=== PATIENT | male | born 1935 | race Caucasian/White ===

== ENCOUNTER 2022-02-20 07:51 | Inpatient (IN) | payer OTHER ==
[~2022-02-20] VITALS: Ht 172.7 cm; Wt 67.6 kg
[2022-02-20 07:54] VITALS: BP 130/80
[2022-02-20] MEDS ORDERED: NACL 0.9% 500 ML IV ONE (08:00)
--- NOTE | 2022-02-20 08:19 | NUR ---
Pt [facility] CT [facility]
[2022-02-20 08:35] LABS: UREA NITROGEN, BLOOD 24 mg/dL (7-18)
[2022-02-20 09:03] LABS: ACETAMINOPHEN < 0.5 ug/ml (10-30); ALBUMIN 4.2 g/dL (3.4-5.0); ANION GAP 13.2 (8-16); ASPARTATE AMINOTRANSFERASE 24 U/L (15-37); CARBON DIOXIDE 27.8 mmol/L (21-32); CHLORIDE 107 mmol/L (98-107); CREATININE 1.1 mg/dL (0.6-1.3); GLUCOSE 132 mg/dL (74-106); SALICYLATE < 2.8 mg/dL (2.8-20.0); SODIUM SERUM 145 mmol/L (136-145); TOTAL BILIRUBIN 1.2 mg/dL (0.0-1.0)
[2022-02-20 09:15] LABS: BASOPHILS # (AUTO) 0.1 K/uL (0.00-0.22); BASOPHILS % (AUTO) 0.7 % (0.0-2.0); EOSINOPHILS % (AUTO) 0.3 % (0.0-4.0); HEMATOCRIT 41.6 % (36-52); HEMOGLOBIN 14.1 g/dL (12.0-18.0); LYMPHOCYTES # (AUTO) 1.3 K/uL (2.0-11.5); LYMPHOCYTES % (AUTO) 15.2 % (20.5-51.1); MEAN CORPUSCULAR HEMOGLOBIN 30 pg (27-31); MEAN CORPUSCULAR HGB CONC 34 g/dL (33-37); MEAN CORPUSCULAR VOLUME 88.7 fL (80-94); MONOCYTES # (AUTO) 0.5 K/uL (0.8-1.0); MONOCYTES % (AUTO) 6.4 % (1.7-9.3); NEUTROPHILS # (AUTO) 6.6 K/uL (1.8-7.7); NEUTROPHILS % (AUTO) 77.4 % (42.2-75.2); PLATELET COUNT (AUTO) 181 K/uL (140-450); RED BLOOD CELL COUNT(AUTO) 4.69 MIL/uL (4.20-6.10); RED CELL DISTRIBUTION WIDTH 13.8 % (11.6-13.7); WHITE BLOOD COUNT (AUTO) 8.5 K/uL (4.8-10.8)
[2022-02-20] MEDS ORDERED: ZIPRASIDONE MESYLATE 20 MG/ML VIAL IM ONE ×2 (10:05→10:06)
[2022-02-20] MEDS ORDERED: WATER STERILE 10 ML MC ONE (10:06)
[2022-02-20] MEDS ORDERED: HALOPERIDOL IM 5 MG/ML VIAL IM ONE (10:55)
[2022-02-20] MEDS ORDERED: LORazepam 2 MG/ML VIAL IM ONE (10:55)
[2022-02-20] MEDS ORDERED: diphenhydrAMINE 50 MG/ML VIAL IM ONE (10:55)
[2022-02-20 12:01] LABS: APPEARANCE,URINE CLEAR (CLEAR); BILIRUBIN,URINE NEGATIVE (NEGATIVE); BLOOD, URINE TRACE-I (NEGATIVE); COLOR,URINE YELLOW (YELLOW); LEUKOCYTE ESTERASE ,URINE NEGATIVE (NEGATIVE); NITRITE, URINE NEGATIVE (NEGATIVE); PH,URINE 7.5 (5.0-9.0); UGLUCOSE NEGATIVE (NEGATIVE)
[2022-02-20 12:10] LABS: BARBITURATE, URINE NEGATIVE ng/ml (NEG <=200); BENZODIAZEPINE, URINE NEGATIVE ng/mL (NEG <=200); CANNABINOID, URINE NEGATIVE ng/mL (NEG <=50); COCAINE, URINE NEGATIVE ng/mL (NEG <=300); OPIATE, URINE NEGATIVE ng/mL (NEG <=2000); PHENCYCLIDINE SCREEN,URINE NEGATIVE ng/mL (NEG <=25)
[2022-02-20 12:24] LABS: OTHER CASTS, URINE None Seen /LPF (None Seen); WBC,URINE 0-5 /HPF (0-5)
[2022-02-20] MEDS ORDERED: KCL 20 MEQ/WATER INJ PREMIX 200 ML IV ONE (12:55)
[2022-02-20] MEDS ORDERED: ONDANSETRON 4 MG/2 ML VIAL IVP PRN (14:30)
[2022-02-20] MEDS ORDERED: ACETAMINOPHEN 325 MG TAB PO PRN (14:30)
[2022-02-20] MEDS ORDERED: POTASSIUM CHLORIDE 10 MEQ TABER PO PRN (14:30)
[2022-02-20] MEDS ORDERED: MAG SULF 2000 MG/WATER PREMIX 50 ML IV PRN (14:30)
[2022-02-20] MEDS ORDERED: ZOLPIDEM 10 MG TAB PO PRN (14:30)
[2022-02-20] MEDS ORDERED: MORPHINE SULFATE 2 MG/ML SYR IVP PRN (14:30)
[2022-02-20] MEDS ORDERED: DOCUSATE SODIUM 100 MG GELCAP PO PRN (14:30)
--- NOTE | 2022-02-20 19:41 | NUR ---
report given to marcelo claudio . will transport pt to floor
--- NOTE | 2022-02-20 20:00 | NUR ---
Patient will be admitted to care of . Admited to [facility]. Will go to [id number]. Belongings list completed. Report to LEX MATHIAS.
--- NOTE | 2022-02-20 20:39 | NUR ---
pt came from ER by fausto, He is drowsy, awake with the pain. he would mumble and arouse. Attempt to get his history but pt is unable to provide since the baseline.
[2022-02-20 21:00] VITALS: BP 160/106
[2022-02-20] MEDS: NACL 0.9% 1,000 ML IV SCH (22:19)
[2022-02-21] VITALS: BP 158/71
--- NOTE | 2022-02-21 | NUR ---
pt getting his Iv fluid. he is resting, looked very tired.
[2022-02-21 06:11] LABS: BASOPHILS % (AUTO) 0.4 % (0.0-2.0); EOSINOPHILS # (AUTO) 0.1 K/uL (0-0.4); EOSINOPHILS % (AUTO) 0.8 % (0.0-4.0); HEMATOCRIT 40.3 % (36-52); HEMOGLOBIN 13.7 g/dL (12.0-18.0); LYMPHOCYTES # (AUTO) 1.5 K/uL (2.0-11.5); LYMPHOCYTES % (AUTO) 15.5 % (20.5-51.1); MEAN CORPUSCULAR HEMOGLOBIN 31 pg (27-31); MEAN CORPUSCULAR HGB CONC 34 g/dL (33-37); MEAN CORPUSCULAR VOLUME 89.5 fL (80-94); MONOCYTES # (AUTO) 0.7 K/uL (0.8-1.0); MONOCYTES % (AUTO) 6.8 % (1.7-9.3); NEUTROPHILS # (AUTO) 7.3 K/uL (1.8-7.7); NEUTROPHILS % (AUTO) 76.5 % (42.2-75.2); PLATELET COUNT (AUTO) 149 K/uL (140-450); RED CELL DISTRIBUTION WIDTH 14.2 % (11.6-13.7); WHITE BLOOD COUNT (AUTO) 9.5 K/uL (4.8-10.8)
[2022-02-21 06:29] LABS: ANION GAP 8.5 (8-16); CARBON DIOXIDE 28.6 mmol/L (21-32); CHLORIDE 109 mmol/L (98-107); CREATININE 0.7 mg/dL (0.6-1.3); GLUCOSE 65 mg/dL (74-106); POTASSIUM 3.1 mmol/L (3.5-5.1); SODIUM SERUM 143 mmol/L (136-145); UREA NITROGEN, BLOOD 11 mg/dL (7-18)
[2022-02-21 08:00] VITALS: BP 162/83
--- NOTE | 2022-02-21 08:19 | NUR ---
NURSE WALKED IN ROOM FOUND PATIENT ATTEMPTING TO USE URINAL OVER THE SINK. NURSE HELPED PT GET IN BED. NOTED IV TUBING RIPPED OFF AND LEAKING ON FLOOR. CLEANED FLOOR. NURSE ASKED PT TO LOOK AT IV ON ARM. PT STATES "WHAT I NEED RIGHT NOW IS SOME QUIET TO REST" NURSE INSTRUCTED PT TO USE CALL LIGHT IF HE NEEDS ANYTHING, PT STATES "IM NOT USELESS I CAN DO THINGS MYSELF, IM HERE AT THE HOSPITAL BECAUSE EVERYONE GOT TOGETHER AND STARTED SAYING THINGS THAT AREN'T TRUE." CALL LIGHT PLACED NEXT TO PT, AND PT VERBALIZED UNDERSTANDING USE OF CALL LIGHT.
--- NOTE | 2022-02-21 11:52 | NUR ---
NURSE WALKED IN PT TALKING ON PHONE. STATES HE IS TALKING TO HIS GRANDMOTHER. PT THEN ASKS NURSE WHATS MY NAME, NURSE ANSWERS "FELIX BOLTON" PT STATES NOT THAT ONE. NURSE EXPLAINED TO PT HE NEEDS TO BE CONNECTED TO HIS FLUIDS AND HIS MAGNESIUM IS LOW. PT IS REFUSING IV FLUIDS. EXPLAINED RISKS AND BENEFITS. PT CONTINUE TO REFUSE.
--- NOTE | 2022-02-21 12:09 | NUR ---
PT GIVEN INSULIN PER SLIDING SCALE AND DUE ORAL MEDS. PT IN BED. PT STATES HE IS TIRED AND NEEDS TO GET SOME REST. INFORMED PT DIALYSIS NURSE SAID HE WILL BE RECEIVING DIALYSIS FROM 12-3PM. PT VERBALIZED UNDERSTANDING. Addendum: 02/21/22 at 1539 by Mallory Barragan LVN WRONG PATIENT.
[2022-02-21] MEDS: NACL 0.9% 1,000 ML IV SCH (12:10)
--- NOTE | 2022-02-21 13:00 | NUR ---
PT IN HALLWAY SITTING ON CHAIR WRITING NOTES.
--- NOTE | 2022-02-21 15:39 | NUR ---
PT IN BED ASLEEP. VISIBLE CHEST RISE AND FALL. RESPIRATIONS EVEN AND UNLABORED. NO DISTRESS NOTED. CALL LIGHT WITHIN REACH. ALL SAFETY PRECAUTIONS IN PLACE.
--- NOTE | 2022-02-21 17:50 | NUR ---
PT WALKING IN HALLWAY. NURSE BROUGHT PT TO HIS ROOM. PUT TV ON. PT LAYING DOWN WATCHING TV. ORIENTED TO CALL LIGHT, WITHIN EASY REACH. BED IN LOWEST POSITION.
--- NOTE | 2022-02-21 19:27 | NUR ---
ENDORSED PT TO ACOUSTICAL INSTALLER NURSE FOR CONTINUITY OF CARE. PT IN STABLE CONDITION.
[2022-02-21 20:00] VITALS: BP 161/101
--- NOTE | 2022-02-21 20:11 | NUR ---
pt is resting in bed. no sign of acute distress. pt is following command. cooperative and calm
--- NOTE | 2022-02-21 20:32 | NUR ---
I helped to feed the pt. he only ate 3 scopes of his meal and half of his jesse.
--- NOTE | 2022-02-22 00:30 | NUR ---
pt was found standing and walking out of bed. I reminded him that he is in the hospital. he also pulled his Iv. I asked to to go to his bed, he understood.
--- NOTE | 2022-02-22 01:30 | NUR ---
put the IV in on the right 22 gauge
[2022-02-22] MEDS: LORazepam 2 MG/ML VIAL IVP PRN ×2 (01:43→20:16)
--- NOTE | 2022-02-22 03:00 | NUR ---
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 i explained again that he is in the hospital.
[2022-02-22 04:00] VITALS: BP 159/95
[2022-02-22] MEDS: NACL 0.9% 1,000 ML IV SCH ×2 (04:50→21:46)
--- NOTE | 2022-02-22 05:00 | NUR ---
pt wanted to go to the bedroom for number 1 but he already voided on the bed. he doesn't know that he peed on bed. cleaned the patient. Pt wanted to go home to take care for him self, he feels that he is a prisoner here.
[2022-02-22 06:12] LABS: BASOPHILS % (AUTO) 0.6 % (0.0-2.0); EOSINOPHILS % (AUTO) 0.7 % (0.0-4.0); HEMATOCRIT 42.3 % (36-52); HEMOGLOBIN 14.4 g/dL (12.0-18.0); LYMPHOCYTES # (AUTO) 1.3 K/uL (2.0-11.5); LYMPHOCYTES % (AUTO) 17.3 % (20.5-51.1); MEAN CORPUSCULAR HEMOGLOBIN 30 pg (27-31); MEAN CORPUSCULAR HGB CONC 34 g/dL (33-37); MEAN CORPUSCULAR VOLUME 89.2 fL (80-94); MONOCYTES # (AUTO) 0.6 K/uL (0.8-1.0); MONOCYTES % (AUTO) 7.6 % (1.7-9.3); NEUTROPHILS # (AUTO) 5.4 K/uL (1.8-7.7); NEUTROPHILS % (AUTO) 73.8 % (42.2-75.2); PLATELET COUNT (AUTO) 148 K/uL (140-450); RED BLOOD CELL COUNT(AUTO) 4.74 MIL/uL (4.20-6.10); RED CELL DISTRIBUTION WIDTH 14.2 % (11.6-13.7); WHITE BLOOD COUNT (AUTO) 7.3 K/uL (4.8-10.8)
--- NOTE | 2022-02-22 06:15 | NUR ---
pt is resting on the bed now after few attempt to walk by himself.
[2022-02-22 06:31] LABS: ANION GAP 11.8 (8-16); CARBON DIOXIDE 27.8 mmol/L (21-32); CHLORIDE 106 mmol/L (98-107); CREATININE 0.9 mg/dL (0.6-1.3); GLUCOSE 89 mg/dL (74-106); POTASSIUM 3.6 mmol/L (3.5-5.1); SODIUM SERUM 142 mmol/L (136-145); UREA NITROGEN, BLOOD 17 mg/dL (7-18)
[2022-02-22 08:00] VITALS: BP 180/79
--- NOTE | 2022-02-22 09:19 | NUR ---
PATIENT HAS BEEN SCREENED AND CATEGORIZED MODERATE NUTRITION RISK. PATIENT WILL BE SEEN WITHIN 3-5 DAYS OF ADMISSION. 02/20/22-02/25/[address]
--- NOTE | 2022-02-22 09:50 | NUR ---
INFORMED DR GUPTA WHILE HE WAS MAKING ROUNDS. ABOUT PT BP BEING ELEVATED AND HOW HE HAS NO HOME MEDS ON FILE OR ANY PRN IN HIS EMAR. AWAITING NEW ORDERS.
[2022-02-22] MEDS ORDERED: METOPROLOL 25 MG TAB PO STA (10:30)
--- NOTE | 2022-02-22 11:36 | NUR ---
PER DR GUPTA GAVE PT METROPROLOL FIRST DOSE NOW. PT IN BED ASLEEP. WAKEN TO TAKE MEDS. TOOK MED AND LAID BACK DOWN TO SLEEP. CALL LIGHT WITHIN REACH. PT NEAR NURSES STATION.
--- NOTE | 2022-02-22 12:54 | NUR ---
PT GOT OUT OF BED WALKS INTO HALLWAY DRAGGING A BLANKET OVER HIS BACK. PT STATES HE HAS TO GO TAKE CARE OF HIS GRANDMOTHER. LUNCH ARRIVED. NURSE BROUGHT PT TO ROOM. ORIENTED HIM TO HIS SURROUNDINGS. PT EATING LUNCH.
--- NOTE | 2022-02-22 14:16 | NUR ---
PT REFUSING IV FLUIDS. WALKING FROM HALLWAY TO ROOM. SAYS HE CANNOT STAY HERE, HE HAS TO GO TO [place] TO CARE FOR HIS GRANDMOTHER.
[2022-02-22 16:00] VITALS: BP 136/76
--- NOTE | 2022-02-22 16:00 | NUR ---
PT SITTING DOWN IN CHAIR TAPPING FOOT ON FLOOR, STATES HE IS WAITING TO GET OUT.
--- NOTE | 2022-02-22 18:40 | NUR ---
PT SITTING DOWN IN BED EATING DINNER.
--- NOTE | 2022-02-22 19:48 | NUR ---
ENDORSED PT TO COURTROOM DEPUTY OR CALENDAR CLERK NURSE FOR CONTINUITY OF CARE. PT IN STABLE CONDITION.
--- NOTE | 2022-02-22 19:50 | NUR ---
RECEIVED PT FROM AM NURSE FOR CONTINUITY OF CARE. PT IS STABLE
[2022-02-22 20:00] VITALS: BP 124/76
[2022-02-22] MEDS: METOPROLOL 25 MG TAB PO SCH (21:44)
--- NOTE | 2022-02-23 | NUR ---
PATIENT PULLED OUT HIS IV. WILL ATTEMPT TO INSERT NEW IV LINE.
--- NOTE | 2022-02-23 03:00 | NUR ---
PATIENT ASLEEP, ALL SAFETY MEASURES IN PLACE , NO DISTRESS NOTED
[2022-02-23 05:55] LABS: BASOPHILS % (AUTO) 0.6 % (0.0-2.0); EOSINOPHILS # (AUTO) 0.1 K/uL (0-0.4); EOSINOPHILS % (AUTO) 1.4 % (0.0-4.0); HEMATOCRIT 40.1 % (36-52); HEMOGLOBIN 13.6 g/dL (12.0-18.0); LYMPHOCYTES % (AUTO) 25.7 % (20.5-51.1); MEAN CORPUSCULAR HEMOGLOBIN 30 pg (27-31); MEAN CORPUSCULAR HGB CONC 34 g/dL (33-37); MEAN CORPUSCULAR VOLUME 89.3 fL (80-94); MONOCYTES # (AUTO) 0.7 K/uL (0.8-1.0); MONOCYTES % (AUTO) 8.5 % (1.7-9.3); NEUTROPHILS # (AUTO) 4.9 K/uL (1.8-7.7); NEUTROPHILS % (AUTO) 63.8 % (42.2-75.2); PLATELET COUNT (AUTO) 159 K/uL (140-450); RED BLOOD CELL COUNT(AUTO) 4.49 MIL/uL (4.20-6.10); RED CELL DISTRIBUTION WIDTH 14.1 % (11.6-13.7); WHITE BLOOD COUNT (AUTO) 7.7 K/uL (4.8-10.8)
[2022-02-23 07:16] LABS: ANION GAP 11.1 (8-16); CARBON DIOXIDE 28.8 mmol/L (21-32); CHLORIDE 105 mmol/L (98-107); CREATININE 0.9 mg/dL (0.6-1.3); GLUCOSE 98 mg/dL (74-106); POTASSIUM 3.9 mmol/L (3.5-5.1); SODIUM SERUM 141 mmol/L (136-145); UREA NITROGEN, BLOOD 25 mg/dL (7-18)
[2022-02-23 08:00] VITALS: BP 169/98
[2022-02-23] MEDS: METOPROLOL 25 MG TAB PO SCH ×2 (09:02→22:08)
[2022-02-23] MEDS: LORazepam 2 MG/ML VIAL IVP PRN (10:18)
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
--- NOTE | 2022-02-23 12:38 | NUR ---
MESSAGE LEFT WITH PATIENTS EMERGENCY CONTACT NAVNEET WRIGHT AT [phone] THAT PATIENT WAS DISCHARGED AND NEEDS TO BE PICKED UP. WAITING FOR FAMILY TO CALL BACK OR COME PICK PATIENT UP. Mariel PAYTON RN.
[2022-02-23] MEDS: NACL 0.9% 1,000 ML IV SCH (14:10)
--- NOTE | 2022-02-23 14:21 | NUR ---
PT. WITH LOW TRI SCALE AT MODERATE TO HIGH RISK, CONTINUE TO FOLLOW PRESSURE INJURY PREVENTION INTERVENTIONS. -POSITIONING: TURN AND REPOSITION PATIENT Q 2H OR SOONER USE PILLOWS TO KEEP BONY PROMINENCES FROM DIRECT CONTACT WITH SURFACES USE REPOSITIONING WEDGES TO PROVIDE 30-DEGREE ANGLE FOR SIDE LYING POSITIONS OFFLOADING OR FOAM DRESSING TO ALL TUBING TO PREVENT MEDICAL DEVICES RELATED PRESSURE INJURY -RE-EVALUATING AND MANAGING INCONTINENCE MONITOR SKIN CONDITION DURING POSITION CHANGE DO NOT MASSAGE REDNESS, BONY PROMINENCES FREQUENT MELBA-CARE AND PROVIDE BARRIER CREAMS PRN IF SOILING MOISTURE CONTROL BY OFFER BED HOUSTON/URINAL /ABSORBENT PAD TO WICK AND HOLD MOISTURE KEEP SKIN DRY AND PROTECT FROM FRICTION -MANAGE FRICTION/SHEAR/MOBILITY KEEP HOB AT THE LOWEST LEVEL OF ELEVATION NO MORE THAN 30 DEGREE UNLESS OTHERWISE CONTRAINDICATED USE LIFT SHEET OR TRANSFER DEVICE TO MOVE PATIENT AND PREVENT LATERAL SHEER. PROTECT HEELS, ELBOWS BONY PROMINENCES WITH SKIN BERRIES OR FOAM DRESSING IF EXPOSED TO FRICTION OFFLOAD BILATERAL HEELS BY PLACING PILLOWS UNDER CALVES AT ALL TIMES, UNLESS OTHERWISE CONTRAINDICATED -PRESSURE REDISTRIBUTION SURFACE THERAPY ELZA ISOFLEX MATTRESS -NUTRITION: PLEASE FOLLOW RD RECOMMENDATIONS AND OFFER NUTRITION SUPPLEMENTS IF ORDERED. PLEASE CONTACT WOUND CARE NURSE FOR ANY QUESTION AND CHANGE OF WOUND CONDITION.
[2022-02-23 16:00] VITALS: BP 142/87
--- NOTE | 2022-02-23 19:12 | NUR ---
RECEIVED REPORT FROM DAY SHIFT NURSE FELIBERTO FOR CONTINUITY OF CARE. PT SLEEPING, EASILY AROUSABLE BY VERBAL STIMULI. RESPIRATIONS EVEN AND UNLABORED ON RA. PT ALREADY HAS A DC ORDER BUT PER RN, PT WAS NOT DC DUE TO FAMILY CAN'T BE CONTACTED. CALL LIGHT WITHIN REACH. SAFETY PRECAUTIONS IN PLACE.
[2022-02-23 20:00] VITALS: BP 140/75
--- NOTE | 2022-02-23 22:16 | NUR ---
ADMINISTERED DUE MEDS. PT TOLERATED WELL.
--- NOTE | 2022-02-24 00:45 | NUR ---
PT AWAKE. GET UP FROM BED. REMOVED GOWN, NO DIAPER. PT REFUSED WEARING DIAPER. CHANGED BED LINENS AND GOWN. PT WENT BACK TO BED AND SLEEP.
[2022-02-24 04:00] VITALS: BP 140/75
--- NOTE | 2022-02-24 04:05 | NUR ---
V/S TAKEN, STABLE, AFEBRILE. DID MORNING CARE. PT REMAINED CLEAN AND DRY. NO DISTRESS NOTED. SAFETY PRECAUTIONS IN PLACE.
[2022-02-24 05:32] LABS: BASOPHILS # (AUTO) 0.1 K/uL (0.00-0.22); EOSINOPHILS # (AUTO) 0.1 K/uL (0-0.4); EOSINOPHILS % (AUTO) 0.5 % (0.0-4.0); HEMATOCRIT 42.6 % (36-52); LYMPHOCYTES # (AUTO) 2.2 K/uL (2.0-11.5); LYMPHOCYTES % (AUTO) 19.9 % (20.5-51.1); MEAN CORPUSCULAR HEMOGLOBIN 31 pg (27-31); MEAN CORPUSCULAR HGB CONC 35 g/dL (33-37); MEAN CORPUSCULAR VOLUME 86.7 fL (80-94); MONOCYTES # (AUTO) 0.7 K/uL (0.8-1.0); MONOCYTES % (AUTO) 6.2 % (1.7-9.3); NEUTROPHILS # (AUTO) 7.9 K/uL (1.8-7.7); NEUTROPHILS % (AUTO) 72.4 % (42.2-75.2); PLATELET COUNT (AUTO) 200 K/uL (140-450); RED BLOOD CELL COUNT(AUTO) 4.91 MIL/uL (4.20-6.10); RED CELL DISTRIBUTION WIDTH 14.2 % (11.6-13.7)
[2022-02-24 06:19] LABS: ANION GAP 15.9 (8-16); CARBON DIOXIDE 25.2 mmol/L (21-32); CHLORIDE 100 mmol/L (98-107); CREATININE 0.9 mg/dL (0.6-1.3); GLUCOSE 92 mg/dL (74-106); POTASSIUM 4.1 mmol/L (3.5-5.1); SODIUM SERUM 137 mmol/L (136-145); UREA NITROGEN, BLOOD 16 mg/dL (7-18)
[2022-02-24] MEDS: NACL 0.9% 1,000 ML IV SCH ×2 (06:50→23:39)
--- NOTE | 2022-02-24 07:12 | NUR ---
ENDORSED PT TO DAY SHIFT NURSE FELIEBRTO FOR CONTINUITY OF CARE. ALL NEEDS MET THROUGHOUT SHIFT. PT IS STABLE.
[2022-02-24 08:00] VITALS: BP 171/99
--- NOTE | 2022-02-24 08:04 | NUR ---
PATIENT CLIMBING OUT OF BED, CONFUSED, NOT COOPERATIVE WITH STAFF AND TRYING TO PULL OUT IV. DR. ALBARRAN CALLED AND NOTIFIED. RECEIVED ORDER FOR MARIE SOFT WRIST RESTRAINTS. MARIE SOFT WRIST RESTRAINTS APPLIED. CALL PLACED TO FAMILY WITH NO ANSWER. MESSAGE LEFT FOR FAMILY NAVNEET AT [phone] TO NOTIFY OF RESTRAINTS AND DISCHARGE ORDER FROM YESTERDAY. WILL CONTINUE TO MONITOR FOR SAFETY. Mariel LONG RN.
[2022-02-24] MEDS: LORazepam 2 MG/ML VIAL IVP PRN ×2 (08:07→22:07)
[2022-02-24] MEDS: METOPROLOL 25 MG TAB PO SCH ×2 (09:25→21:15)
--- NOTE | 2022-02-24 11:51 | NUR ---
DISCHARGE PLANNING KOKO CONTACTED [place] [employer] AT SPOKE TO GLORIA ABOUT FOLLOWING UP WITH A WELFARE CHECK CALL THAT WAS MADE PREVIOUSLY BY KOKO Hayden PER GLORIA Lee. OFFICER WAS AT THE RESIDENT BUT NO ONE WAS FOUND AT THE HOME AT THE TIME; AFTER SEVERAL CALLS AND ATTEMPTS TO MEET WITH HOME RESIDENT Martin Sawyer LEFT A NOTE IN THE DOOR. FOR RESIDENT TO CALL BACK [facility] AND UMBERTO SUTHERLAND/ELIANE WILL FOLLOW UP NEEDED.
[2022-02-24 16:00] VITALS: BP 150/81
--- NOTE | 2022-02-24 19:30 | NUR ---
RECEIVED PT FROM MORNING SHIFT NURSE. PT IS AOX1 AND BEDREST. PT IS ON ROOM AIR AND REGULAR DIET. PT HAS IV ON RIGHT WRIST GAUGE 20 SALINE LOCK. PT HAS RESTRAINTS AND PT SKIN IS INTACT. NO S/S OF RESPIRATORY DISTRESS NOTED. ALL SAFETY MEASURES IMPLEMENTED. BED IN LOW POSITION, BED WHEELS ON LOCKED AND CALL LIGHT WITHIN REACH.
--- NOTE | 2022-02-24 21:15 | NUR ---
SCHEDULED AND PRESCRIBED MEDICATION WAS GIVEN TO PT PER MD ORDER. ALL SAFETY MEASURES IMPLEMENTED. BED IN LOW POSITION, BED WHEELS ON LOCKED AND CALL LIGHT WITHIN REACH.
--- NOTE | 2022-02-24 22:07 | NUR ---
ATIVAN WAS GIVEN TO PT PER MD ORDER. ALL SAFETY MEASURES IMPLEMENTED. BED IN LOW POSITION, BED WHEELS ON LOCKED AND CALL LIGHT WITHIN REACH.
--- NOTE | 2022-02-25 | NUR ---
CLEANED AND CHANGED THE PT'S GOWN, LINENS AND CHUCKS. ALL SAFETY MEASURES IMPLEMENTED. BED IN LOW POSITION, BED WHEELS ON LOCKED AND CALL LIGHT WITHIN REACH.
--- NOTE | 2022-02-25 02:00 | NUR ---
PT IS SLEEPING. CHEST RISE AND FALL SYMMETRICALLY NOTED. RESPIRATION IS EVEN AND UNLABORED. ALL SAFETY MEASURES IMPLEMENTED. BED IN LOW POSITION, BED WHEELS ON LOCKED AND CALL LIGHT WITHIN REACH.
[2022-02-25 04:00] VITALS: BP 153/86
[2022-02-25] MEDS: LORazepam 2 MG/ML VIAL IVP PRN (04:04)
--- NOTE | 2022-02-25 04:04 | NUR ---
ATIVAN WAS GIVEN TO PT PER MD ORDER. ALL SAFETY MEASURES IMPLEMENTED. BED IN LOW POSITION, BED WHEELS ON LOCKED AND CALL LIGHT WITHIN REACH.
[2022-02-25 05:51] LABS: BASOPHILS # (AUTO) 0.1 K/uL (0.00-0.22); BASOPHILS % (AUTO) 0.9 % (0.0-2.0); EOSINOPHILS # (AUTO) 0.1 K/uL (0-0.4); EOSINOPHILS % (AUTO) 1.6 % (0.0-4.0); HEMATOCRIT 39.6 % (36-52); HEMOGLOBIN 13.9 g/dL (12.0-18.0); LYMPHOCYTES # (AUTO) 1.2 K/uL (2.0-11.5); LYMPHOCYTES % (AUTO) 16.8 % (20.5-51.1); MEAN CORPUSCULAR HEMOGLOBIN 30 pg (27-31); MEAN CORPUSCULAR HGB CONC 35 g/dL (33-37); MEAN CORPUSCULAR VOLUME 86.1 fL (80-94); MONOCYTES # (AUTO) 0.6 K/uL (0.8-1.0); MONOCYTES % (AUTO) 8.8 % (1.7-9.3); NEUTROPHILS # (AUTO) 5.3 K/uL (1.8-7.7); NEUTROPHILS % (AUTO) 71.9 % (42.2-75.2); PLATELET COUNT (AUTO) 167 K/uL (140-450); RED CELL DISTRIBUTION WIDTH 13.7 % (11.6-13.7); WHITE BLOOD COUNT (AUTO) 7.4 K/uL (4.8-10.8)
[2022-02-25 06:31] LABS: ANION GAP 12.6 (8-16); CARBON DIOXIDE 27.8 mmol/L (21-32); CHLORIDE 102 mmol/L (98-107); CREATININE 0.7 mg/dL (0.6-1.3); GLUCOSE 64 mg/dL (74-106); POTASSIUM 3.4 mmol/L (3.5-5.1); SODIUM SERUM 139 mmol/L (136-145); UREA NITROGEN, BLOOD 17 mg/dL (7-18)
--- NOTE | 2022-02-25 07:10 | NUR ---
ASSUMED CONTINUITY OF CARE. INITIAL ASSESSMENT DONE. RE-ORIENTED TO EVENTS AND SURROUNDINGS. NON-COMPLIANT TO SAFETY. KEEP COMFORTABLE ON BED. FALL PRECAUTION APPLIED. CALL LIGHT WITHIN REACH.
--- NOTE | 2022-02-25 07:29 | NUR ---
PT IS STABLE. ENDORSED PT TO MORNING SHIFT NURSE FOR CONTINUITY OF CARE.
[2022-02-25 08:00] VITALS: BP 149/90
[2022-02-25] MEDS: METOPROLOL 25 MG TAB PO SCH ×2 (09:18→20:36)
--- NOTE | 2022-02-25 10:30 | NUR ---
PT ALERT, AWAKE AND RESPONSIVE. PT TRIED TO KICK STAFF. INSERTED IV TO RT HAND. GAUGE 20. TOLERATED WELL. IVF INFUSED. WILL CONTINUE TO MONITOR.
[2022-02-25] MEDS ORDERED: POTASSIUM CHLORIDE 20% 40 MEQ/15 ML UDC PO PRN (11:25)
--- NOTE | 2022-02-25 11:58 | NUR ---
DC PLANNING: DOROTA GUILLERMO SPOKE WITH PRADEEP STATED PATIENT WAS WITH HOME HEALTH PRIOR TO ADMISSION AND WILL CONTINUE HOME HEALTH. NO SNF NEEDED FOR THIS PATIENT RECOMMENDED TO CONTACT THE FAMILY KOKO CALLED JACQUES SCHILLING FOR WELLNESS CHECK. SW TO FOLLOW UP. Addendum: 02/25/22 at 1703 by Jailene Soria RN DC PLANNING: PER UMBERTO SCHILLING PATIENTS PARTNER FOUND AND NO OTHER FAMILY MEMBER. DOROTA LEXASUPA SPOKE WITH PRADEEP FOR A POSSIBLE INTERMEDIATE PLACEMENT. FAXED PT EVALUATION AND CM TO FOLLOW Addendum: 02/26/22 at 1143 by Jailene Soria RN DC PLANNING: RECEIVED A CALL FROM UMBERTO AGUILAR WITH [facility] MORE CLINICALS TO BE FAXED TO [phone] FAXED. CM TO FOLLOW Addendum: 02/27/22 at 1137 by Jailene Soria RN DC PLANNING: RECEIVED A CALL FROM OFFICER MEGHNA [phone] STATED HAS A CASE FOR PT'S SPOUSE [facility] AND REQUESTING PT'S CONDITION, UPDATED PT'S CLINICAL AND CONDITION AND PROVIDE PT'S NEIGHBOR'S PHONE NUMBER [phone]. PER OFFICER MEGHNA WILL CHECK IS THERE IS ANY NEXT OF KIN AND WILL CALL BACK. NOTIFIED PRADEEP DEL RIO AT [facility]. CM TO FOLLOW Addendum: 02/27/22 at 1525 by Jailene Soria RN DC PLANNING: PER PRADEEP TO FAX IT TO EVERY SNF AND WILLING TO GIVE CORI. FAXED TO [facility], [facility], [facility], [facility], [facility] AND [facility]. CM TO FOLLOW Addendum: 02/27/22 at 1611 by Jailene Soria RN DC PLANNING: CM CALLED FREDDIE STOUT [place] [phone] SPOKE WITH FREDDIE UPDATED PT'S CLINICALS AND CONDITION PER FREDDIE WILLING TO HELP. CALLED OFFICER CHENCHO PUBLIC GUARDIAN OFFICE PROVIDE FREDDIE NUMBER, PER OFFICER WILL ASK HIM TO GET THE POWER OF PAINTER ORDNANCE. NADIRA TUBBS [facility] HAS NO MALE MEDS. CM TO FOLLOW Addendum: 03/02/22 at 1354 by Jailene Soria RN DC PLANNING: PATIENT IS ON RESTRAINTS, PER PRIMARY NURSE ELLIOT TRIED TO TAKE OFF RESTRAINTS AND PT PULLED OUT IV AND TRIED TO GET OUT OFF BED, SPOKE WITH DR JORGE LACEYUST MEDS AND SITTER FOR NOW. CALLED PUBLIC GUARDIAN [phone] LEFT A MESSAGE FOR ANY UPDATES. CALLED FREDDIE STOUT OF [facility] ASKED HIM IF HE IS WILLING TO HELP HOWEVER FREDDIE STATED HE LIVES IN [place] AND DOESN'T KNOW THAT MR FELIX HAS ANY FAMILY. CALLED PRADEEP AT [facility] LEFT A MESSAGE. CM TO FOLLOW Addendum: 03/06/22 at 1158 by Jailene Soria RN DC PLANNING: CM SPOKE WITH PRADEEP AT [facility] NOTIFIED HER THAT PATIENT THIS OFF RESTRAINTS FOR THE LAST 48 HRS PER PRADEEP WILL SUBMIT TO THE DC COORDINATOR AND STATED EVE TO GIVE CORI . FAXED TO [facility]. DELIVERY CREW MEMBER CALLED THE OFFICE OF PUBLIC GUARDIAN TO START THE PROCESS OF CONSERVATORSHIP. CM TO FOLLOW Addendum: 03/06/22 at 1356 by Jailene Soria RN DC PLANNING: [facility] STATED NO LOCKED UNIT, PER MARCO ANTONIO ALVARENGA NO BED AVAILABLE , LYDIA FROM [facility] WILL COME TO EVALUATE PATIENT. CM TO FOLLOW Addendum: 03/06/22 at 1520 by Jailene Soria RN DC PLANNING: [facility] ACCEPTED PATIENT, CAN GO TO ROOM 14B PRADEEP FROM [facility] PROVIDE AUTH #[id number] ARRANGED TRANSPORT WITH [facility] [phone] STRATEGIC ACCOUNTS MANAGER TIME STRATEGIC ACCOUNTS MANAGER TIME 3:30 NOTIFIED ELHAM MATHIAS.
--- NOTE | 2022-02-25 16:14 | NUR ---
02/25/22 RD INITIAL ASSESSMENT COMPLETED PLEASE REFER TO NUTRITION ASSESSMENT UNDER CARE ACTIVITY FOR ESTIMATED NUTRITIONAL NEEDS. 1. RECOMMEND CARDIAC DIET 2. RECOMMEND ENSURE 1XDAY. - ENSURE 1XDAY WILL PROVIDE 350 KCAL, 20 G PROTEIN. 3. MONITOR PO INTAKE, GI, LAB VALUES. 4. RD TO FOLLOW-UP 3-5 DAYS, MODERATE RISK REVIEWED BY PREETI OCHOA RD
[2022-02-25] MEDS: NACL 0.9% 1,000 ML IV SCH (16:36)
--- NOTE | 2022-02-25 19:10 | NUR ---
ENDORSED TO TELEVISION ANALYZER NURSE JA FOR CONTINUITY OF CARE. REMAINS IN STABLE CONDITION.
--- NOTE | 2022-02-25 19:11 | NUR ---
RECEIVED PT FROM MORNING SHIFT NURSE. PT IS AOX1, AND BEDBOUND. PT IS ON ROOM AIR AND ON REGULAR DIET. PT HAS RESTRAINTS AND HAS IV ON RIGHT HAND GAUGE 20 RUNNING WITH NS AT 60ML/HR. PT HAS LEFT ELBOW SKIN TEAR AND RIGHT LOWER EXTREMITY ABRASION. NO S/S RESPIRATORY DISTRESS NOTED. ALL SAFETY MEASURES IMPLEMENTED. BED IN LOW POSITION, BED WHEELS ON LOCKED AND CALL LIGHT WITHIN REACH.
[2022-02-25 20:00] VITALS: BP 138/80
--- NOTE | 2022-02-26 | NUR ---
CLEANED THE PT AND CHANGED PT'S GOWN, LINENS AND CHUCKS. NO COMPLAIN OF PAIN AND NO S/S OF RESPIRATORY DISTRESS NOTED. ALL SAFETY MEASURES IMPLEMENTED. BED IN LOW POSITION, BED WHEELS ON LOCK AND CALL LIGHT WITHIN REACH.
[2022-02-26] MEDS: LORazepam 2 MG/ML VIAL IVP PRN (01:05)
--- NOTE | 2022-02-26 01:05 | NUR ---
ATIVAN WAS GIVEN TO PT PER MD ORDER. ALL SAFETY MEASURES IMPLEMENTED. BED IN LOW POSITION, BED WHEELS ON LOCKED AND CALL LIGHT WITHIN REACH.
[2022-02-26 04:00] VITALS: BP 140/78
--- NOTE | 2022-02-26 04:00 | NUR ---
MORNING CARE WAS DONE TO PT. CHANGED LINENS AND CHUCKS. ALL SAFETY MEASURES IMPLEMENTED. BED IN LOW POSITION, BED WHEELS ON LOCKED AND CALL LIGHT WITHIN REACH.
--- NOTE | 2022-02-26 07:29 | NUR ---
PT IS STABLE. ENDORSED PT TO MORNING SHIFT NURSE FOR CONTINUITY OF CARE.
[2022-02-26 08:37] VITALS: BP 170/93
[2022-02-26] MEDS: METOPROLOL 25 MG TAB PO SCH ×2 (08:39→21:00)
--- NOTE | 2022-02-26 11:42 | NUR ---
TOOK HIM OUT OF THE RESTRAINT TO SEE HOW HE IS DOING, WATCHING HIM CLOSELY,LUMA
[2022-02-26] MEDS: NACL 0.9% 1,000 ML IV SCH (12:00)
--- NOTE | 2022-02-26 19:30 | NUR ---
HAND-OFF REPORT RECEIVED FROM MEY ADRIAN A.M NURSE. PT RECEIVED CONFUSED A/0X1-2. MUMBLING AND ATTEMPTING TO REMOVE SOFT WRIST RESTRAINTS. ON ROOM AIR. CHEST OBSERVED RISING AND FALLING EVEN AND UNLABORED BREATHING. REPORTED NEIGHBORS AND OTHERS ATTEMPTING TO GET INFORMATION ON PT PERSONAL INFORMATION AND ACCESS TO PT HOUSE, PERSONAL BELONGINGS AND PET. ALL CALLERS ARE TO BE DIRECTED TO HEAD SETTER AND NO INFORMATION GIVEN UNTIL TRUE FAMILY IS ESTABLISHED. ALL SAFETY MEASURES IN PLACE. CONTINUE TO MONITOR.
[2022-02-26 20:00] VITALS: BP 140/87
[2022-02-27] MEDS: NACL 0.9% 1,000 ML IV SCH ×2 (01:30→16:58)
[2022-02-27 04:00] VITALS: BP 157/78
--- NOTE | 2022-02-27 07:22 | NUR ---
got report from the night nurse, pt is awake trying to get out of the bed.[id number]
--- NOTE | 2022-02-27 07:30 | NUR ---
HAND-OFF REPORT TO RETURNING RN NGUYỄN. ENDORSED PT TO A.M NURSE. PT CONTINUES SAME CONFUSED WITH BOUTS OF RESTLESSNESS. NS UNCHANGED AT 60 ML/H VIA R ARM 22 GA. NO FAMILY OR NEIGHBORS CALLED LAST NOC. REFUSED PO MEDS. NO ACUTE DISTRESS NOTED. RELINQUISHED ARE OF PT AT THIS TIME.
[2022-02-27] MEDS: METOPROLOL 25 MG TAB PO SCH ×2 (08:15→21:17)
[2022-02-27] MEDS: LORazepam 2 MG/ML VIAL IVP PRN (08:55)
[2022-02-27 11:53] LABS: BASOPHILS # (AUTO) 0.1 K/uL (0.00-0.22); BASOPHILS % (AUTO) 0.8 % (0.0-2.0); EOSINOPHILS # (AUTO) 0.1 K/uL (0-0.4); EOSINOPHILS % (AUTO) 0.6 % (0.0-4.0); HEMATOCRIT 39.8 % (36-52); HEMOGLOBIN 13.8 g/dL (12.0-18.0); LYMPHOCYTES # (AUTO) 1.5 K/uL (2.0-11.5); LYMPHOCYTES % (AUTO) 15.8 % (20.5-51.1); MEAN CORPUSCULAR HEMOGLOBIN 30 pg (27-31); MEAN CORPUSCULAR HGB CONC 35 g/dL (33-37); MEAN CORPUSCULAR VOLUME 85.8 fL (80-94); MONOCYTES # (AUTO) 0.8 K/uL (0.8-1.0); MONOCYTES % (AUTO) 8.1 % (1.7-9.3); NEUTROPHILS # (AUTO) 7.1 K/uL (1.8-7.7); NEUTROPHILS % (AUTO) 74.7 % (42.2-75.2); PLATELET COUNT (AUTO) 178 K/uL (140-450); RED BLOOD CELL COUNT(AUTO) 4.63 MIL/uL (4.20-6.10); WHITE BLOOD COUNT (AUTO) 9.5 K/uL (4.8-10.8)
[2022-02-27 12:00] VITALS: BP 157/78
[2022-02-27 12:18] LABS: ANION GAP 11.9 (8-16); CARBON DIOXIDE 28.8 mmol/L (21-32); CHLORIDE 104 mmol/L (98-107); GLUCOSE 120 mg/dL (74-106); POTASSIUM 3.7 mmol/L (3.5-5.1); SODIUM SERUM 141 mmol/L (136-145); UREA NITROGEN, BLOOD 17 mg/dL (7-18)
--- NOTE | 2022-02-27 18:37 | NUR ---
NEW IV WITH 18G ON THE RIGHT UPPER ARM.[id number]
[2022-02-27 20:00] VITALS: BP 130/89
--- NOTE | 2022-02-27 21:17 | NUR ---
ADMINISTERED SCHEDULED MEDICATION. TOLERATED WELL. PATIENT AWAKE ON ROOM AIR. NO SOB. RESPIRATION EVEN UNLABORED. DENIES PAIN. AFEBRILE. CALL LIGHT WITHIN REACH. ON BILATERAL WRIST RESTRAINTS. SAFETY MEASURES IN PLACE.
--- NOTE | 2022-02-28 07:47 | NUR ---
ENDORSED TO AM NURSE FOR CONTINUITY OF CARE. PATIENT STABLE.
--- NOTE | 2022-02-28 07:48 | NUR ---
RECEIVED REPORT FROM NETWORK CONSULTANT NURSE JANUARY FOR CONTINUITY OF CARE. PT AWAKE IN BED. RESPIRATIONS EVEN AND UNLABORED ON RA. PT ON BILATERAL SOFT WRIST RESTRAINT. ASSESSED BILATERAL WRISTS. NO BRUISES, REDNESS, EDEMA, NO COMPLAINTS OF PAIN. NOTED RIGHT BARRY ABRASION, LEFT KNEE SCAB, LEFT ELBOW WOUND KRISTEN. SAFETY PRECAUTIONS IN PLACE.
[2022-02-28 08:00] VITALS: BP 155/78
[2022-02-28] MEDS: METOPROLOL 25 MG TAB PO SCH ×2 (09:04→20:40)
--- NOTE | 2022-02-28 09:05 | NUR ---
ADMINISTERED DUE MED. PT TOLERATED WELL.
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
[2022-02-28] MEDS: NACL 0.9% 1,000 ML IV SCH (11:03)
--- NOTE | 2022-02-28 15:20 | NUR ---
DID AFTERNOON CARE WITH DISPATCHER REFINERY. PT REMAINED CLEAN AND DRY. NO DISTRESS NOTED. NO SIGNS OF PAIN. SAFETY PRECAUTIONS IN PLACE.
[2022-02-28 16:00] VITALS: BP 150/83
--- NOTE | 2022-02-28 19:13 | NUR ---
ENDORSED TO NIGHT NURSE JANUARY MATHIAS, FOR CONTINUITY OF CARE. ALL NEEDS MET THROUGH OUT SHIFT. PATIENT STABLE AT THIS TIME.
--- NOTE | 2022-02-28 20:40 | NUR ---
SCHEDULED MEDICATION ADMINISTERED.
--- NOTE | 2022-02-28 21:04 | NUR ---
PATIENT IN BED RESTING, APPEARS TO BE COMFORTABLE ON ROOM AIR. DENIES PAIN. SAFETY PRECAUTIONS ARE IN PLACE. CALL LIGHT WITHIN REACH. CONSUMED 100% OF HIS DINNER. IVF INFUSING ORDERED.
[2022-03-01] VITALS: BP 143/73
[2022-03-01] MEDS: NACL 0.9% 1,000 ML IV SCH ×2 (04:15→20:10)
--- NOTE | 2022-03-01 06:48 | NUR ---
PATIENT IV INFILTRATED. STARTED A NEW IV LINE ON THE LEFT HAND WITH GOOD BACKFLOW OF BLOOD.
--- NOTE | 2022-03-01 07:27 | NUR ---
GAVE REPORT TO NURSE CONTE FOR CONTINUITY OF CARE. PATIENT STABLE.
[2022-03-01 08:00] VITALS: BP 129/85
[2022-03-01] MEDS: METOPROLOL 25 MG TAB PO SCH ×2 (09:00→20:37)
--- NOTE | 2022-03-01 15:54 | NUR ---
03/01/22 RD FOLLOW UP COMPLETED.PLEASE REFER TO NUTRITION ASSESSMENT UNDER CARE ACTIVITY FOR ESTIMATED NUTRITIONAL NEEDS. 1. CONTINUE WITH REGULAR DIET PT TOLERATES 2. CONTINUE WITH ENSURE 1XDAY. - ENSURE 1XDAY WILL PROVIDE 350 KCAL, 20 G PROTEIN. 3. MONITOR PO INTAKE 4.RD TO FOLLOW-UP IN 5-7 DAYS PATIENT IS LOW RISK. ONEL DELAROSA RD
[2022-03-01 16:00] VITALS: BP 130/64
[2022-03-01] MEDS ORDERED: LORazepam 2 MG/ML VIAL IM/IVP PRN (17:30)
--- NOTE | 2022-03-01 19:32 | NUR ---
ENDORSE PATIENT IN STABLE CONDITION TO PM SHIFT NURSE WHILE PIV INFUSING VIA RICHARD 22G CATHETER @80ML/HR
--- NOTE | 2022-03-01 19:33 | NUR ---
RECEIVED REPORT FROM DAY SHIFT NURSE INÉS FOR CONTINUITY OF CARE. PT AWAKE IN BED. RESPIRATIONS EVEN AND UNLABORED ON RA. PT ON BILATERAL SOFT WRIST RESTRAINT. ASSESSED BILATERAL WRISTS. BILAT WRISTS NO BRUISES, REDNESS, EDEMA, NO COMPLAINTS OF PAIN. IV SITE ON RICHARD 22G INFUSING IVF. SAFETY PRECAUTIONS IN PLACE.
--- NOTE | 2022-03-01 19:33 | NUR ---
Patient's Plan of Care was discussed and reviewed with TRISTA: YANNA
[2022-03-01 20:00] VITALS: BP 138/77
--- NOTE | 2022-03-01 20:40 | NUR ---
ADMINISTERED DUE MED. PT TOLERATED WELL.
--- NOTE | 2022-03-02 05:22 | NUR ---
DID MORNING CARE. PT TOLERATED WELL. PT REMAINED CLEAN AND DRY. NO DISTRESS NOTED. SAFETY PRECAUTIONS IN PLACE.
--- NOTE | 2022-03-02 07:28 | NUR ---
ENDORSED PT TO DAY SHIFT NURSE INÉS FOR CONTINUITY OF CARE. BILATERAL SOFT WRIST RESTRAINT ASSESSED AND RELEASED EVERY 2 HRS FOR 15 MINS. NO INJURY NOTED WITH GOOD CIRCULATION. ALL NEEDS MET THROUGHOUT SHIFT. PT IS IN STABLE CONDITION.
[2022-03-02 08:00] VITALS: BP 123/84
[2022-03-02] MEDS: METOPROLOL 25 MG TAB PO SCH ×2 (09:10→21:00)
[2022-03-02] MEDS: NACL 0.9% 1,000 ML IV SCH (12:56)
[2022-03-02 16:00] VITALS: BP 178/91
--- NOTE | 2022-03-02 19:31 | NUR ---
ENDORSE PATIENT IN STABLE CONDITION TO PM SHIFT NURSE WHILE TPN INFUSING VIA ESTEPHANIA PICC @60ML/HR; WOUND DRESSING DONE Addendum: 03/02/22 at 1933 by Grace Cueto RN WRONG PATIENT, WRONG CHART
--- NOTE | 2022-03-02 19:34 | NUR ---
ENDORSE PATIENT IN STABLE CONDITION TO PM SHIFT NURSE WHILE PIV INFUSING VIA RICHARD 22G CATHETER @60ML/HR; PATIENT STILL ON RESTRICT
--- NOTE | 2022-03-02 19:35 | NUR ---
RECEIVED REPORT FROM DAY SHIFT NURSE CONTE FOR CONTINUITY OF CARE. PT SLEEPING, EASILY AROUSABLE BY VERBAL STIMULI. RESPIRATIONS EVEN AND UNLABORED ON RA. PT ON BILATERAL SOFT WRISTS RESTRAINTS. PER NURSE CONTE PLAN IS TO WEAN OFF PT FROM RESTRAINT NEW MEDICATION ORDER IN PLACE. SAFETY PRECAUTIONS IN PLACE.
[2022-03-02 20:00] VITALS: BP 138/78
--- NOTE | 2022-03-02 20:00 | NUR ---
RELEASED PT FROM RESTRAINTS. ASSESSED BILATERAL WRISTS, NO SIGNS OF INJURY, WITH GOOD CIRCULATION. PT SLEEPING AT THIS TIME.
[2022-03-02] MEDS: LORazepam 0.5 MG TAB PO SCH (21:00)
--- NOTE | 2022-03-02 21:58 | NUR ---
NON-ADMIT SCHEDULED MEDS DUE TO V/S BELOW PARAMETERS. PT AWAKE, CALM, NON-AGGRESSIVE, IN BED.
[2022-03-03 04:00] VITALS: BP 133/80
--- NOTE | 2022-03-03 05:10 | NUR ---
DID MORNING CARE. PT CALM. NO SIGNS OF AGITATION. FOLLOWS DIRECTIONS. STAYS IN BED. PT REMAINED CLEAN AND DRY.
[2022-03-03] MEDS: NACL 0.9% 1,000 ML IV SCH ×2 (05:37→22:46)
--- NOTE | 2022-03-03 06:35 | NUR ---
PT WOKE UP AND TRIED TO GET OUT OF BED. STARTED TO BECAME AGITATED. WAS TRYING TO REMOVE IV LINE AND GOWN. ATTEMPTED TO PUSH NURSE WHEN ASKED TO GO BACK TO BED. RE-ORIENTED TO TIME AND PLACE. PT STILL NON COOPERATIVE. BILATERAL SOFT WRIST RESTRAINT PLACED BACK. NO INJURY NOTED. NO DISTRESS NOTED. SAFETY PRECAUTIONS IN PLACE.
--- NOTE | 2022-03-03 07:08 | NUR ---
ASSUMED CONTINUITY OF CARE. INITIAL ASSESSMENT DONE. RE-ORIENTED TO EVENTS AND SURROUNDINGS. NON-COMPLIANT TO SAFETY. KEEP COMFORTABLE ON BED. FALL PRECAUTION APPLIED. CALL LIGHT WITHIN REACH.
--- NOTE | 2022-03-03 07:18 | NUR ---
ENDORSED PT TO DAY SHIFT NURSE HILARIO FOR CONTINUITY OF CARE. ALL NEEDS MET THROUGHOUT SHIFT. PT IS IN STABLE CONDITION.
[2022-03-03 08:00] VITALS: BP 168/90
--- NOTE | 2022-03-03 08:00 | NUR ---
Patient's Plan of Care was discussed and reviewed with HAND SEWER: HILARIO
[2022-03-03] MEDS: LORazepam 0.5 MG TAB PO SCH ×2 (08:15→20:28)
[2022-03-03] MEDS: METOPROLOL 25 MG TAB PO SCH ×2 (08:15→20:28)
[2022-03-03 09:15] VITALS: BP 156/86
--- NOTE | 2022-03-03 09:45 | NUR ---
CONFUSED, NON-COMPLIANT. CUT IV TUBING, REMOVED IV ACCESS ON LEFT UPPER ARM, AND TRIED TO GET OUT FROM BED. CLOSELY MONITORED.
--- NOTE | 2022-03-03 10:56 | NUR ---
PRN ATIVAN ADMINISTERED PER MD ORDER FOR RESTLESSNESS AND PULLING AT LINES. PT STABLE WITH CHEST RISING AND FALLING EVEN AND UNLABORED. ALL SAFETY MEASURES IN PLACE, CALL LIGHT WITHIN REACH. WILL CONTINUE TO MONITOR.
[2022-03-03] MEDS: risperiDONE 1 MG TAB PO SCH ×2 (14:36→20:29)
[2022-03-03 16:00] VITALS: BP 154/82
--- NOTE | 2022-03-03 17:00 | NUR ---
CONFUSED AND RESTLESS. RE-ORIENTED TO EVENTS AND SURROUNDINGS. CLOSELY MONITOR FROM THE DOOR.
--- NOTE | 2022-03-03 19:15 | NUR ---
BEDSIDE REPORT GIVEN TO DAVE FORMAN. IVF INFUSING WELL. IN STABLE CONDITION.
--- NOTE | 2022-03-03 19:16 | NUR ---
RECD. REPORT FROM TRISTA RICH. PATIENT RESTING IN BED, AWAKE, A/OX1, CONFUSED. BUT ABLE TO ANSWER SOME QUESTIONS ABOUT HIS NEEDS. RESPIRATION EVEN AND UNLABORED. IV OF NS INFUSING AT 60 ML/HR, RIGHT UPPER ARM G20. TRYING TO GET OUT OF BED. ON BILATERAL SOFT WRIST RESTRAINTS IN PLACED. SAFETY MEASURES ENFORCED. BED IN THE LOWEST POSITION, SIDE RAILS UP. CALL LIGHT IN REACH. DENIES PAIN 0/10.
--- NOTE | 2022-03-03 19:16 | NUR ---
RECEIVED ENDORSEMENT FROM HILARIO WESTON, PATIENT WAS STABLE DURING SHIFT REPORT. PATIENT WAS NOTED AWAKE AND ORIENTED X 3 ON ROOM AIR. PATIENT'S REQUEST AND DOCUMENT SHOWING PATIENT IS IN THE HOSPITAL. WAS ADVISED TO COME IN THE AM TO MEDICAL RECORDS FOR THIS REQUEST. COPY OF HER ID IN THE CHART.PATIENT IN BED SLEEPING BUT TO AWAKEN. PATIENT IS AWANEW IV WILL BE STARTED LATER. HEAD OF WAS RAISED FOR RESPIRATORY PROMOTED BREATHING WITHOUT DISTRESS. NO S/S OF PAIN/DISCOMFORT AT THIS TIME. PATIENT LANGUAGE OF CHOICE IS [place]. PATIENT WAS KEPT CLEAN AND DRY AT THIS TIME. CALL LIGHT WITHIN REACH BED AT THE LOWEST LEVEL FOR SAFETY SIDE RAILS UP X 2 FOR ADJUSTMENTS AND SAFETY. [id number] Addendum: 03/03/22 at 2013 by Apple Villavicencio LVN WRONG CHARTING . [id number] Addendum: 03/03/22 at 2019 by Destinee Samuel LVN ERROR WRONG PATIENT. [id number] Addendum: 03/03/22 at 2021 by Destinee Samuel LVN CORRECTION: AMENDMENT TO THIS NOTES DONE BY TRISTA CARMICHAEL AND NOT BY TRISTA ACOSTA.
[2022-03-03 20:00] VITALS: BP 154/75
--- NOTE | 2022-03-03 20:00 | NUR ---
WHEN ASKED WHAT HE WANTS, STATED HE WANTS MILK. GIVEN REQUESTED. NO S/S OF ASPIRATION NOTED.
--- NOTE | 2022-03-03 20:29 | NUR ---
SCHEDULED MEDICATIONS ADMINISTERED WITH APPLE SAUCE, TOLERATED WELL.
--- NOTE | 2022-03-03 22:30 | NUR ---
STILL AWAKE, TRYING TO GET OUT OF BED. REORIENTED TO HOSPITAL SETTING.
--- NOTE | 2022-03-03 23:00 | NUR ---
CLEANSED AND DIAPER CHANGED WITH HELP OF LONG LINES OPERATOR. REPOSITIONED IN BED WITH PILLOWS FOR COMFORT.
[2022-03-04] VITALS: BP 142/68
--- NOTE | 2022-03-04 | NUR ---
SLEEPING COMFORTABLY IN BED.
--- NOTE | 2022-03-04 02:00 | NUR ---
TRYING TO GET OUT OF BED. CLEANSED AND DIAPER CHANGED. REPOSITIONED IN BED FOR COMFORT.
--- NOTE | 2022-03-04 04:00 | NUR ---
STILL SLEEPING COMFORTABLY IN BED.
--- NOTE | 2022-03-04 07:10 | NUR ---
ASSUMED CONTINUITY OF CARE. CONFUSED AND RESTLESS. RE-ORIENTED TO EVENTS AND SURROUNDINGS. CLOSELY MONITOR FROM THE DOOR.
--- NOTE | 2022-03-04 07:15 | NUR ---
CONDITION REMAIN STABLE. ENDORSED TO RTISTA RICH FOR CONTINUITY OF CARE.
[2022-03-04 08:00] VITALS: BP 160/77
[2022-03-04] MEDS: risperiDONE 1 MG TAB PO SCH ×3 (09:02→21:09)
[2022-03-04] MEDS: METOPROLOL 25 MG TAB PO SCH ×2 (09:03→21:09)
[2022-03-04] MEDS: LORazepam 0.5 MG TAB PO SCH ×2 (09:03→21:09)
--- NOTE | 2022-03-04 11:38 | NUR ---
RECEIVED NEW ORDER BY DR. ALBARRAN, GIVE RISPERIDONE 1 MG PO NOW. ORDER NOTED AND CARRIED OUT.
[2022-03-04 16:00] VITALS: BP 142/91
[2022-03-04] MEDS: NACL 0.9% 1,000 ML IV SCH (16:06)
--- NOTE | 2022-03-04 19:11 | NUR ---
REPORT GIVEN TO JANY FOR CONTINUITY OF CARE. IVF INFUSING WELL. REMAINS STABLE AT THIS TIME.
[2022-03-04 20:00] VITALS: BP 143/61
--- NOTE | 2022-03-04 21:00 | NUR ---
NO ATTEMPT TO GET OUT OF BED, TAKEN OFF RESTRAINTS. CHARGE NURSE MJ AWARE.
--- NOTE | 2022-03-04 21:30 | NUR ---
SEEING GROUP OF PEOPLE IN THE CEILING. REORIENTED TO HOSPITAL SETTING.
--- NOTE | 2022-03-04 22:00 | NUR ---
CLEANSED AND DIAPER CHANGED DONE, MADE COMFORTABLE IN BED WITH BLANKETS.
--- NOTE | 2022-03-04 23:30 | NUR ---
OCCASIONALLY WAKE UP AND TALKED TO SELF. NO ATTEMPT TO GET OUT OF BED.
--- NOTE | 2022-03-05 02:00 | NUR ---
CLEANSED AND CHANGED DIAPER. REPOSITIONED AND MADE COMFORTABLE IN BED WITH PILLOWS. STILL OFF RESTRAINTS.
--- NOTE | 2022-03-05 04:00 | NUR ---
STILL ASLEEP, NO APPEARANCE OF PAIN OR DISCOMFORT NOTE, 0/10.
--- NOTE | 2022-03-05 06:30 | NUR ---
CONDITION REMAIN STABLE. NO ATTEMPT TO GET OUT OF BED DURING THE SHIFT.
--- NOTE | 2022-03-05 07:10 | NUR ---
RECEIVED REPORT FROM NIGHT NURSE JANY FOR [facility]. INITIAL ASSESSMENT DONE. PATIENT WEAN OFF RESTRAINT. NO EPISODE OF GETTING OUT OF BED. IN BED SLEEPING. CALL LIGHT KEPT WITHIN REACH. WILL CONTINUE TO MONITOR.
--- NOTE | 2022-03-05 07:20 | NUR ---
SAFETY MAINTAINED. ENDORSED TO [place]H[employer] SOLVENT PROCESS EXTRACTOR OPERATOR FOR CONTINUITY OF CARE.
[2022-03-05] MEDS: NACL 0.9% 1,000 ML IV SCH ×2 (07:30→23:19)
[2022-03-05 08:00] VITALS: BP 130/84
[2022-03-05] MEDS: risperiDONE 1 MG TAB PO SCH ×2 (09:18→20:13)
[2022-03-05] MEDS: METOPROLOL 25 MG TAB PO SCH ×2 (09:18→20:13)
--- NOTE | 2022-03-05 09:18 | NUR ---
SCHEDULED MEDICATIONS GIVEN. TOLERATING WELL. IN BED SLEEPING, NO C/O PAIN OR DISCOMFORT.
[2022-03-05] MEDS: LORazepam 0.5 MG TAB PO SCH ×2 (09:19→20:13)
[2022-03-05 16:00] VITALS: BP 147/80
--- NOTE | 2022-03-05 18:36 | NUR ---
PATIENT EATING DINNER AT THIS TIME. NO EPISODE OF GETTING OUT OF BED. REMAINS STABLE.
--- NOTE | 2022-03-05 19:23 | NUR ---
ENDORSED PT TO OIL BOILER NURSE FOR CONTINUITY OF CARE.
--- NOTE | 2022-03-05 19:30 | NUR ---
RECEIVED PT IN BED SITTING, INCONTINENT OF URINE, CLEANED PT AND MADE COMFORTABLE IN BED. NO S/SX OF PAIN NOR DISCOMFORT. NO S/SX OF ACUTE RESPIRATORY DISTRESS. SKIN WARM AND DRY TO TOUCH. SAFETY PRECAUTION IN PLACE, CALL LIGHT IN REACH.
--- NOTE | 2022-03-05 22:48 | NUR ---
INCONTINENT OF URINE, PERINEAL CARE RENDERED. MADE COMFORTABLE IN BED.
[2022-03-06] VITALS: BP 144/84
--- NOTE | 2022-03-06 00:02 | NUR ---
PATIENT IS ASLEEP. BREATHING EVEN AND UNLABORED. CALL LIGHT IN REACH.
--- NOTE | 2022-03-06 05:38 | NUR ---
AM CARE RENDERED. MADE COMFORTABLE IN BED. CALL LIGHT IN REACH.
--- NOTE | 2022-03-06 06:36 | NUR ---
PATIENT IS ASLEEP. ALL NEEDS ATTENDED TO. NO DISTRESS NOTED. SAFETY PRECAUTIONS MAINTAINED DURING THE SHIFT, CALL LIGHT REMAINS WITHIN REACH.
--- NOTE | 2022-03-06 07:10 | NUR ---
RECEIVED PT FROM BUSINESS ATTORNEY NURSE FOR CONTINUITY OF CARE.
[2022-03-06 08:00] VITALS: BP 109/79
--- NOTE | 2022-03-06 08:00 | NUR ---
Patient's Plan of Care was discussed and reviewed with TRISTA: AAYUSH
[2022-03-06] MEDS: LORazepam 0.5 MG TAB PO SCH (09:00)
[2022-03-06] MEDS: METOPROLOL 25 MG TAB PO SCH (09:00)
[2022-03-06] MEDS: risperiDONE 1 MG TAB PO SCH (09:00)
--- NOTE | 2022-03-06 09:00 | NUR ---
PT SLEEPING DOES NOT WANT TO WAKE UP FOR BREAKFAST AND MEDS. PT VERY DROWSY. VISIBLE CHEST RISE/ FALL. RESPIRATIONS EVEN AND UNLABORED. ALL V/S STABLE. ALL SAFETY PRECAUTIONS IN PLACE.
[2022-03-06] MEDS ORDERED: NACL 0.9% 1,000 ML IV SCH (12:25)
--- NOTE | 2022-03-06 16:25 | NUR ---
REPORT GIVEN TO [place] AT [facility]. IV AND NAME BAND REMOVED. BELONGINGS GATHERED AND HANDED TO TRANSPORT STAFF. PT IN STABLE CONDITION.
[2022-03-06] MEDS ORDERED: RIS1 PO (17:53)
[2022-03-06] MEDS ORDERED: ATI.5 PO (17:53)
== END 2022-03-06 17:12 | DRG 682 ==
LOC: MED 07:51 → EDBD 07:51 → MTU 14:26
PROVIDERS: ADMIT Family Medicine; ATTEND Family Medicine
PROC: 3E0234Z Introduction of Serum, Toxoid and Vaccine into Muscle, Percutaneous Approach (ICD-10-PCS; principal; 2022-02-20)
DX: N17.0 Acute kidney failure with tubular necrosis (principal); G93.41 Metabolic encephalopathy; E86.0 Dehydration; E87.6 Hypokalemia; Z20.822 Contact with and (suspected) exposure to COVID-19; F03.90 Unspecified dementia, unspecified severity, without behavioral disturbance, psychotic disturbance, mood disturbance, and anxiety; E80.6 Other disorders of bilirubin metabolism; Z23 Encounter for immunization
CPT/HCPCS: 36415; 70450; 71045; 73080; 80048; 80053; 80305; 81001; 82140; 82550; 83735; 84484; 85025; 87081; 90471; 90715; 93005; 96372; 97110; 97112; 97116; 97163-GP; 97530; 99285; G0480; G0482; J1200; J1630; J2060; J2270; J3475; J3480; J3486; Q0092